=== PATIENT | male | born 1955 | race American Indian/Alaskan Native ===

== ENCOUNTER 2017-04-14 23:38 | Emergency (ER) | payer OTHER ==
[2017-04-15 00:55] LABS: Basophils % (Auto) 0.7 % (0.0-1.8); Eosinophils % (Auto) 2.6 % (0.0-4.3); Hematocrit 40.9 % (35.5-45.6); Hemoglobin 13.6 gm/dl (11.8-15.2); Mean Corpuscular HGB Conc 33 % (32-34); Mean Corpuscular Hemoglobin 30 pg (28-32); Mean Corpuscular Volume 89 fl (84-94); Platelet Count 145 K/mm3 (140-440); Red Blood Count 4.59 M/mm3 (3.65-5.03); Red Cell Distribution Width 13.5 % (13.2-15.2); White Blood Count 5.4 K/mm3 (4.5-11.0)
[2017-04-15 01:15] LABS: Alanine Aminotransferase 28 units/L (7-56); Albumin 4.1 g/dL (3.9-5); Albumin/Globulin Ratio 1.3 %; Alkaline Phosphatase 68 units/L (35-129); Anion Gap 18 mmol/L; BUN/Creatinine Ratio 21; Blood Urea Nitrogen 15 mg/dL (9-20); Calcium 8.8 mg/dL (8.4-10.2); Carbon Dioxide 23 mmol/L (22-30); Chloride 102.3 mmol/L (98-107); Glucose 104 mg/dL (75-100); Potassium 4.1 mmol/L (3.6-5.0); Sodium 139 mmol/L (137-145); Total Protein 7.3 g/dL (6.3-8.2)
[2017-04-15 06:34] VITALS: BP 129/73
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
[2017-04-15] MEDS: NORCO 5/325 PO ONE (06:55)
[2017-04-15] MEDS: TETRACAINE 0.5% OU ONE (06:55)
--- NOTE | 2017-04-15 07:37 | XRay Report ---
LEFT ANKLE: Pain. The bones are well mineralized with normal bony contours and joint alignment. No fractures or destructive changes are noted and the adjacent soft tissues are normal. IMPRESSION: Normal study.
[2017-04-15] MEDS: NAPROSYN PO ONE (08:08)
== END 2017-04-15 09:02 | disposition home or self-care (01) ==
LOC: ED 23:38
DX: S93.492A Sprain of other ligament of left ankle, initial encounter (principal); R07.89 Other chest pain; H40.9 Unspecified glaucoma; F17.200 Nicotine dependence, unspecified, uncomplicated; X58.XXXA Exposure to other specified factors, initial encounter; Y93.9 Activity, unspecified; Y99.9 Unspecified external cause status; Y92.89 Other specified places as the place of occurrence of the external cause
CPT/HCPCS: 36415; 80053; 84484; 85025; 93005; 93010

== ENCOUNTER 2021-08-24 22:31 | Emergency (ER) | payer OTHER ==
[2021-08-24 22:43] VITALS: BP 121/63
== END 2021-08-25 00:46 | disposition left against medical advice (07) ==
LOC: ED 22:31
DX: M79.10 Myalgia, unspecified site (principal); Z53.21 Procedure and treatment not carried out due to patient leaving prior to being seen by health care provider

== ENCOUNTER 2021-12-11 02:27 | Emergency (ER) | payer OTHER ==
[2021-12-11 07:58] VITALS: BP 132/70
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
[2021-12-11] MEDS ORDERED: KETOROLAC 30 MG/1 ML INJ IM ONE (09:04)
[2021-12-11] MEDS ORDERED: CYCLOBENZAPRINE 10 MG TAB PO ONE (09:04)
[2021-12-11] MEDS ORDERED: KETOROLAC 10 MG TAB PO ONE (09:11)
--- NOTE | 2021-12-11 12:00 | XRay Report ---
XR ankle 2V RT INDICATION / CLINICAL INFORMATION: ankle pain. COMPARISON: None available. FINDINGS: BONES/JOINT(S): No acute fracture or subluxation. No significant degenerative changes. No focal bone erosions or focal osteopenia to suggest inflammatory arthropathy. SOFT TISSUES: No significant abnormality. ADDITIONAL FINDINGS: None. Signer Name: Brenton Persaud MD Signed: 12/11/2021 11:52 AM Workstation Name: [id number]
== END 2021-12-12 10:11 | disposition home or self-care (01) ==
LOC: ED 02:27
DX: M25.571 Pain in right ankle and joints of right foot (principal); M79.671 Pain in right foot; Z85.46 Personal history of malignant neoplasm of prostate; B19.20 Unspecified viral hepatitis C without hepatic coma; Z98.890 Other specified postprocedural states; F17.290 Nicotine dependence, other tobacco product, uncomplicated
CPT/HCPCS: 99283